=== PATIENT | female | born 1990 | race Caucasian/White ===

== ENCOUNTER 2021-01-30 19:23 | Emergency (ER) | payer SELFPAY ==
[~2021-01-30] VITALS: Ht 157.5 cm; Wt 59.0 kg
[2021-01-30 19:25] VITALS: BP 121/87
--- NOTE | 2021-01-30 19:27 | PHYS DOC ---
Adult General HPI HPI Patient is a 30-year-old female who presents to the emergency department with a chief complaint of abdominal cramping and no bowel movement for 5 days. States he is never had anything like this before. States cramping is around a discomfort level of 4, intermittent. Denies any recent travels, traumas, illnesses, fevers, chest pain, shortness of breath, dysuria, hematuria, blood in the stool, diarrhea, vaginal bleeding, vaginal discharge, vaginal pain or history of STIs. Review of Systems Review of Systems Review of systems otherwise unremarkable except noted in HPI Physical Exam Physical Exam Constitutional: Well developed, well nourished, no acute distress, non-toxic appearance. [] HENT: Normocephalic, atraumatic, bilateral external ears normal, oropharynx moist, no oral exudates, nose normal. [] Eyes: conjunctiva normal, no discharge. [] Neck: Normal range of motion, no tenderness, supple, no stridor. [] Cardiovascular:Heart rate regular rhythm, no murmur [] Lungs & Thorax: Bilateral breath sounds clear to auscultation [] Abdomen: soft, no tenderness, no masses, no pulsatile masses. [] Skin: Warm, dry, no erythema, no rash. [] Back: no CVA tenderness. [] Extremities: No tenderness, no cyanosis, no clubbing, ROM intact, no edema. [] Neurologic: Alert and oriented X 3, normal motor function, normal sensory function, no focal deficits noted. [] Psychologic: Affect normal, judgement normal, mood normal. [] EKG EKG [] Radiology/Procedures Radiology/Procedures [] Heart Score C/O Chest Pain: No Risk Factors: Risk Factors: DM, Current or recent (<one month) smoker, HTN, HLP, family history of CAD, obesity. Risk Scores: Risk Factors: DM, Current or recent (<one month) smoker, HTN, HLP, family history of CAD, obesity. Course & Med Decision Making Course & Med Decision Making Patient is a 30-year-old female who presents with abdominal cramping and no bowel movement for 5 days Vital signs notable for sinus tachycardia which resolved in the ED. Physical exam noted above. Patient positive. Urinalysis with bacteria. Started on Keflex in the ED for asymptomatic bacteriuria. Ultrasound notable for single live intrauterine measuring 7 weeks and 0 days. Nausea resolved in ED and able to take p.o. Given nausea medicine for home. Given contact information for local primary care physician. Advised on symptom management at home. Advised to follow-up in the morning with her primary care physician to start setting up care. Advised vitamin. Gave return precautions to the ED. Patient grateful, verbalized understanding and agreed with plan of discharge. Dragon Disclaimer Dragon Disclaimer This electronic medical record was generated, in whole or in part, using a voice recognition dictation system. Departure Departure: Impression: Primary Impression: Constipation Additional Impressions: Positive test Asymptomatic bacteriuria Disposition: HOME / SELF CARE / HOMELESS Condition: GOOD Referrals: PCP,TONYA (PCP) ARTIS GARCIA Patient Instructions: Constipation, Adult Additional Instructions: Thank you for coming into the emergency department tonight and allowing us to take care of you. Please read the attached information carefully to go over things we discussed. Your test was positive today. Please begin a stool softener regimen as we discussed. Please be sure to drink plenty of fluids and adjust your diet over the next couple of days to light and clear and stay away from anything heavy. It may help to stay away from anything dairy as well as we discussed. Please call your primary care physician/[employer] in the morning to update on your ED visit and set up a follow-up. Please come back to the ED with new or concerning symptoms as we discussed. Scripts Metoclopramide Hcl (REGLAN) 10 Mg Tablet 1 TAB PO TID for N/V for 5 Days, #15 TAB 0 Refills before food and bedtime Prov: MARTÍNEZ CALL MD 01/30/21 Cephalexin (KEFLEX) 500 Mg Capsule 1 CAP PO BID for UTI for 5 Days, #10 CAP Prov: MARTÍNEZ CALL MD 01/30/21 Problem Qualifiers MARTÍNEZ CALL MD Jan 30, 2021 19:27
[2021-01-30] MEDS ORDERED: ONDANSETRON ODT 4 MG TAB.RAPDIS PO ONE (19:30)
[2021-01-30 20:41] LABS: BACTERIA,URINE FEW /HPF (0-FEW); BILIRUBIN,URINE NEG (NEG); CLARITY,URINE CLEAR; COLOR,URINE YELLOW; GLUCOSE,URINE NEG (NEG); NITRITE,URINE NEG (NEG); RBC,URINE 0 /HPF (0-2); SQUAMOUS EPITHELIAL CELL,UR FEW /LPF; UROBILINOGEN,URINE 0.2 mg/dL (0.2 mg/dL)
[2021-01-30] MEDS ORDERED: CEPHALEXIN 250 MG CAPSULE PO ONE (20:45)
--- NOTE | 2021-01-30 21:44 | RAD ---
Exam: Ultrasound OB less than 14 weeks Indication: , abdominal pain Technique: Real-time grayscale and color Doppler images of the pelvis were obtained by the department railroad signal operator. Comparisons: None FINDINGS: Uterus measures 7.5 x 6.8 x 4.8 cm. Within the endometrium there is a gestational sac with internal y olk sac and pole. [place]-rump length is measured at 9 mm corresponding to 7 weeks 0 days. heart rate is measured at 145 bpm. Right ovary measures 3.1 x 3.2 x 2.3 cm. Left ovary measures 2.6 x 3.1 x 2 1.9 cm. Basilar flow identified in the ovaries bilaterally. IMPRESSION: 1. Single live intrauterine gestation measuring 7 weeks 0 days by ultrasound, discordant with LMP. 2. Dedicated survey is recommended 18-20 weeks gestation. Electronically signed by: Arden Franco MD (01/30/2021 9:42 PM) JIAN
[2021-01-30] MEDS ORDERED: METO10TA81 PO (21:48)
[2021-01-30] MEDS ORDERED: CEPH500C PO (21:48)
== END 2021-01-30 21:53 | disposition home or self-care (01) ==
LOC: ER 19:23
DX: O26.891 Other specified pregnancy related conditions, first trimester (principal); K59.00 Constipation, unspecified; R82.71 Bacteriuria; Z3A.01 Less than 8 weeks gestation of pregnancy
CPT/HCPCS: 76817; 81001; 81025; 99284; Q0162